=== PATIENT | female | born 1970 | race Asian ===

== ENCOUNTER 2016-12-17 21:34 | Inpatient (IN) | payer OTHER ==
--- NOTE | ~2016-12-17 | CT57 ---
[facility] RADIOLOGY TEXT RESULTS PATIENT: FRACISCO PATTEN [facility] [id number] : [birth year] UNIT #: [id number] AGE: [address]: Lloyd Bhardwaj MD SEX: F ORDER DR: [id number] [facility] [address] [facility]. [place], [place] [address] [id number] I MR#: [id number] Acc #: [id number] NAME: FRACISCO PATTEN : 1970 SEX: F STUDY DATE/TIME: 12/18/2016 8:25 UNIT: CED ROOM: [id number] STUDY DESCRIPTION: CT Chest Wo Cont Attending Physician: Lloyd Bhardwaj M.D. Ordering Physician: Gianna Jaimes M.D. Primary Care Physician: Mohinder Guerrero M.D. MEDICAL IMAGING REPORT This report is preliminary unless electronic signature is present EXAM CT chest without contrast. HISTORY Shortness of air, cough x1 month, history of asthma. COMPARISON Chest CT, 11/15/2016. TECHNIQUE This CT exam was performed with one or more of the following radiation dose reduction techniques: automatic exposure control, adjustment of mA and/or kV according to patient size, and iterative reconstruction. FINDINGS Axial images performed through the chest without contrast. Multiplanar reconstructed images reviewed at a workstation. Examination demonstrates extensive ground-glass opacities and diffuse airspace disease upper mid and lower lung zones. A dense consolidation noted in the right middle lobe. Differential would include infectious process as well as diffuse pulmonary edema. There is a moderate-sized right pleural effusion, which layers to a depth of at least 3 cm. This has been noted on prior studies. There is a trace left pleural effusion. Stable cardiomegaly with a small pericardial effusion. Continued mediastinal and hilar lymphadenopathy. Polycystic changes noted within the kidneys and liver consistent with autosomal dominant polycystic disease. Osseous structures, extrathoracic soft tissues are unremarkable. IMPRESSION 1. Diffuse airspace disease throughout both lungs with area of dense consolidation, right middle lobe. Differential would include infectious etiologies as well as pulmonary edema or, less likely, pulmonary hemorrhage. Correlate with clinical presentation. STS. [facility] A Service of [facility] RADIOLOGY TEXT RESULTS PATIENT: FRACISCO PATTEN LOCATION: [place] [address] : [birth year] UNIT #: [id number] AGE: [address]: Lloyd Bhardwaj MD SEX: F ORDER DR: 2. Continued jpbhl-xy-vqtafxnh right pleural effusion with trace left pleural effusion. 3. Stable mediastinal lymphadenopathy. 4. Polycystic kidney and liver disease. Dictated by... Silke Cano M.D. THIS IS AN ELECTRONICALLY VERIFIED REPORT Silke Cano M.D. at 12/18/2016 3:04 PM YEN/suze TD: 12/18/2016 14:05 JOB #: [id number] MEDICAL IMAGING REPORT COPY
--- NOTE | ~2016-12-17 | OR ---
Unit #: [id number] #: [id number] Patient: FRACISCO PATTEN [id number] [address] [place], [place] [address] [id number] I MR#: [id number] NAME: FRACISCO PATTEN ROOM: 305 Date of Procedure: 12/22/2016 Admission Date: 12/17/2016 Surgeon: Mahad Sam M.D. : 1970 Attending Physician: Lloyd Bhardwaj M.D. Primary Care Physician: Mohinder Guerrero M.D. OPERATIVE REPORT PRIMARY CARE PHYSICIAN Mohinder Guerrero M.D. PREOPERATIVE DIAGNOSES Nausea. The patient has end-stage renal disease, on hemodialysis. PROCEDURES PERFORMED Upper gastrointestinal endoscopy. POSTOPERATIVE DIAGNOSIS Completely normal examination up to upper third part of duodenum. RECOMMENDATIONS The patient's nausea related to underlying renal disease and no specific intervention is indicated except for continuation of hemodialysis and symptomatic treatment with Reglan and/or Zofran. SEDATION USED MAC. DESCRIPTION OF PROCEDURE Following detailed explanation of the potential risks and complications of an upper endoscopy namely perforation, bleeding, and complications related to sedation, the patient was brought to GI lab and laid in left lateral decubitus position. Lubricated tip of the Olympus video upper endoscope was passed through the bite block into the proximal esophagus under direct vision. The entire esophageal mucosa was examined and appeared normal. Z-line was nicely demarcated, there being no esophagitis or hiatus hernia. The scope was then advanced into the gastric cavity and the latter was insufflated. Mucosa of the fundus, body, and antrum examined and appeared unremarkable. Pylorus was intubated with visualization of the normal duodenal bulb and second and third part of the duodenum. Upon withdrawal and retroflexion, incisura, cardia, and greater curve examined and no additional findings noted. The scope was withdrawn in the distal esophagus. The entire esophageal mucosa was examined all the way up to pharynx. No additional findings noted. The patient tolerated the procedure without any postprocedure complications. Dictated by... Mahad Sam M.D. Unit #: [id number] #: [id number] Patient: FRACISCO PATTEN AK/asiya TD: 12/23/2016 21:23 JOB #: [id number] OPERATIVE REPORT X Mahad Sam MD PROCEDURE OPERATIVE NOTE
--- NOTE | ~2016-12-17 | OR ---
Unit #: [id number] #: [id number] Patient: FRACISCO PATTEN [id number] [address] [place], [place] [address] [id number] I MR#: [id number] NAME: FRACISCO PATTEN ROOM: [facility] Date of Procedure: 12/20/2016 Admission Date: 12/17/2016 Surgeon: Maite Montemayor M.D. : 1970 Attending Physician: Lloyd Bhardwaj M.D. Primary Care Physician: Mohinder Guerrero M.D. OPERATIVE REPORT GRAIN UNLOADER None. PREPROCEDURE DIAGNOSIS Functioning right arm fistula for dialysis no longer requiring tunneled dialysis catheter. POSTOPERATIVE DIAGNOSIS Functioning right arm fistula for dialysis no longer requiring tunneled dialysis catheter. PROCEDURE PERFORMED Removal of right internal jugular vein tunneled dialysis catheter. ANESTHESIA None. COMPLICATIONS None. SPECIMEN None. INDICATIONS FOR PROCEDURE The patient is a Irish woman with a functioning right arm basilic fistula for dialysis. She no longer requires her tunneled dialysis catheter. She was recommended removal of the catheter in through the full time staff interpreter phone. We obtained consent. She was told of the planned procedure including the risks and benefits, and wished to proceed. DESCRIPTION OF PROCEDURE The patient was in her hospital room and had her right chest wall. Neck and catheter were prepped and draped in normal standard manner. The retaining stitches on the catheter were cut and the stitches were removed. The catheter was put on gentle traction and the subcutaneous cuff was easily manipulable. The catheter was then able to be slowly removed and the cuff was freed. The catheter was then fully removed and discarded. Direct pressure was held on the base of the right neck as well as chest wall for 5 minutes. No further bleeding was then noted and dressing were then applied, and the procedure was terminated. The patient tolerated the procedure well and was kept in her hospital room in stable condition. All needle, sponge, and instrument counts were correct at the end of the case. Unit #: [id number] #: [id number] Patient: FRACISCO PATTEN Dictated by... Kiley Andrews/asiya TD: 01/20/2017 02:08 JOB #: [id number] OPERATIVE REPORT Page 1 of 1 X Maite Montemayor MD PROCEDURE OPERATIVE NOTE
--- NOTE | ~2016-12-17 | CO ---
Unit #: [id number] #: [id number] Patient: FRACISCO PATTEN [id number] [address] [place], [place] [address] [id number] Erma MR#: [id number] NAME: FRACISCO PATTEN ROOM: 305 Age: 46 Sex: F Admission Date: 12/17/2016 : 1970 Attending Physician: Lloyd Bhardwaj M.D. Primary Care Physician: Mohinder Guerrero M.D. CONSULTATION REPORT REASON FOR CONSULTATION Cough, shortness of breath and hemoptysis. HISTORY OF PRESENT ILLNESS This 46-year-old female was recently seen by me a few months ago with complaint of hemoptysis. I am seeing her today. She has been complaining of mild cough and some blood-tinged sputum for the last 2-3 days. Symptoms have been getting worse. Bronchoscopy was done, which was negative. She denies any other complaints. REVIEW OF SYSTEMS Positive pallor. No edema. No cyanosis. No jaundice. PAST MEDICAL HISTORY 1. Endstage renal disease. 2. Polycystic kidney. 3. Hypertension. 4. Chronic anemia. 5. Abdominal pain. 6. Asthma. 7. Hyperparathyroidism. 8. Hemoptysis. 9. Thyroid goiter. 10. Thoracic aortic dilatation. SURGICAL HISTORY 1. . 2. Dialysis. 3. Catheter placement. 4. AV fistula. 5. Status post bronchoscopy. SOCIAL HISTORY Lives with family. No alcohol or drug abuse. FAMILY HISTORY Positive for diabetes. ALLERGIES No known drug allergies. MEDICATIONS As per DEC. Have been reviewed. Unit #: [id number] #: [id number] Patient: FRACISCO PATTEN PHYSICAL EXAMINATION VITAL SIGNS: Temperature 98, pulse 70, respirations 12, blood pressure 130/70. NEUROLOGIC: Awake, alert and oriented. No neuro deficits. HEENT: PERRLA. EOMI. NECK: Supple. No JVD. CHEST: Bilateral air entry. Bilateral mild rhonchi. GI: Nontender. Soft. Bowel sounds are positive. EXTREMITIES: No edema. DIAGNOSTIC STUDIES IMAGING: Reviewed. Chest x-ray - Bilateral pulmonary edema. LABS: Reviewed. ASSESSMENT 1. Acute bronchitis. 2. Fluid overload. 3. Doubt pneumonia. Currently on IV antibiotics. 4. Endstage renal disease. 5. Likely sinusitis. 6. Obstructive sleep apnea. PLAN Will order CT of sinuses and continue current antibiotic. Oxygen, bronchodilator. Sputum for culture and sensitivity. Will continue to monitor the patient. She needs evaluation for sleep apnea as an outpatient. Will order procalcitonin level, as well. Dictated by... Kiley Valdez TD: 12/20/2016 08:20 JOB #: [id number] CONSULTATION REPORT X Gracie Araujo MD X CONSULTATION REPORT
--- NOTE | ~2016-12-17 | DS ---
Unit #: [id number] #: [id number] Patient: FRACISCO PATTEN [id number] [address] [place], [place] [address] [id number] I MR#: [id number] NAME: FRACISCO PATTEN ROOM: 305 Age: 46 Sex: F Admission Date: 12/17/2016 : 1970 Discharge Date: 12/22/2016 Attending Physician: Lloyd Bhardwaj M.D. Primary Care Physician: Mohinder Guerrero M.D. DISCHARGE SUMMARY DISCHARGE DIAGNOSES 1. End stage renal disease on dialysis. 2. Hemoptysis, likely due to pneumonia. Patient will have esophagogastroduodenoscopy for further assessment by Dr. Sam today. 3. Healthcare-acquired pneumonia; treating for presumed gram-negative rods with Levaquin until 12/28/2016. Blood culture: No growth. Sputum culture: Normal respiratory heavenly. 4. Essential hypertension. Blood pressure is stable today. 5. Anemia, likely to chronic disease. Esophagogastroduodenoscopy today to further assess any source of bleeding. 6. Polycystic kidney disease. 7. History of asthma, no acute exacerbation. 8. History of secondary hyperparathyroidism. 9. Goiter thyroid with small nodules. 10. Ascending thoracic aortic dilation; measures 4.8 cm[address] CON[address] 1. Dr. Araujo and Dr. Hanna with pulmonary. 2. Dr. Sam with gastroenterology. PROCEDURES Patient will have an EGD by Dr. Sam today, 12/22/2016. Please follow up with Dr. Sam's full dictated summary for findings. DIAGNOSTIC STUDIES IMAGING: Consists of chest x-ray, 12/17/2016. Impression: Increased ctzy-xx-slvxpujs patchy infiltrate or atelectasis in the right lower lung and along the inferior left hilum as compared to 11/15/2016. Stable cardiac enlargement. CT chest without contrast. Impression: 1. With diffuse airspace disease throughout both lungs with area of dense consolidation, right middle lobe. Differential would include infectious etiology such as pulmonary edema or, less likely, pulmonary hemorrhage. Correlate with clinical presentation. 2. Continued yomdv-ha-rsejvtej right pleural effusion with trace left pleural effusion. 3. Stable mediastinal lymphadenopathy. 4. Polycystic kidney and liver disease. CT sinuses without contrast. Impression is bilateral maxillary sinus mucous retention cysts and minimal left posterior ethmoid sinus mucosal disease. No evidence of acute sinusitis. Unit #: [id number] #: [id number] Patient: FRACISCO PATTEN Chest x-ray on 12/20/2016. Impression: Improving bilateral parenchymal changes likely improving edema and/or pneumonia. There is no definite left pleural effusion. There is minimal blunting of the right costophrenic sulcus suggesting a small residual right effusion. Overall, the findings are improved. LABORATORY: On the day of discharge, patient's labs include BMP with glucose 99, BUN 20, creatinine 5.3, sodium 36, potassium 4.1, chloride 94, CO2 30, calcium 9, phosphorus is 3, and magnesium is 2.1. CBC with WBC of 9.7, RBC 4.17, hemoglobin 10.5, hematocrit 33.7, MCV 80.7, MCH 25.1, MCHC 31.1, RDW 18.8, platelets 224, and MPV 7.7. HOSPITAL COURSE Patient is a pleasant, 46-year-old female with past medical history of end stage kidney disease on hemodialysis secondary to polycystic kidney disease as well as liver disease, essential hypertension, chronic abdominal pain, asthma, hyperparathyroidism, and chronic anemia who presents to the emergency department due to persistent cough, shortness of breath, and hemoptysis. Patient was admitted from November 15 through the for shortness of breath and hemoptysis. Hemoptysis had resolved. She had bronchoscopy, which was negative by Dr. Araujo. She also had a thyroid goiter with small nodules and she was seen by tanning wheel operator at that time. Patient was discharged home. She had dialysis the day prior to admission. The day of admission, she said that she had been coughing about a month. Patient had denied chest pain, nausea, vomiting, or any other complaints. Patient with hemoptysis. Patient's hemoglobin was stable during this hospitalization. She was admitted with a hemoglobin of 10.6 and discharged at 10.5. Hematocrit: Admitted was 33.3 and discharged at 33.7. Patient was treated for pneumonia with triple IV antibiotics with vancomycin, Zosyn, and Levaquin. On the , x-ray comparison showed that there is improvement; although her procalcitonin was still elevated at 1.53. Therefore, it was felt that patient should continue with the Levaquin until 12/28/2016 per pulmonary recommendations. Patient will have an upper EGD by Dr. Sam to assess for her hemoptysis. The patient tells me the hemoptysis is resolved at this time. She has no other complaints. She will be discharged home in stable condition. DISCHARGE INSTRUCTIONS 1. Follow up with the primary care physician within 1-2 weeks for repeat chest x-ray. 2. She is to follow up with Dr. Sam as necessary. 3. Continue with dialysis per Dr. Myers and Dr. Hanna recommendations. 4. Discharge diet: Includes renal diet with heart healthy recommendations. 5. Activity: Resume activities as prior to hospitalization with ambulating every day as tolerated. DISCHARGE CONDITION Stable. DISCHARGE MEDICATIONS Discharge medications include: 1. Ventolin 2 puffs inhaled every 6 hours as needed for shortness of breath and/or wheezing. 2. Sodium bicarb 650 mg orally 3 times daily. 3. Tylenol 325 mg orally every 6 hours as needed for mild pain. 4. Coreg 6.25 mg orally twice daily, which is a new prescription for her. 5. Norvasc 10 mg orally daily. Unit #: [id number] #: [id number] Patient: FRACISCO PATTEN 6. Lasix 20 mg orally daily. 7. Catapres 0.2 mg orally twice daily. 8. Hydralazine 50 mg orally 3 times daily. 9. Cozaar 100 mg orally daily. 10. Reglan 5 mg orally 4 times daily. 11. Renvela 800 mg orally 3 times daily with meals. 12. Protonix 40 mg orally daily. 13. Tizanidine 4 mg orally at bedtime. 14. Levaquin 250 mg orally daily until 12/28. This dictation took greater than 40 minutes and included patient education via phone interpretation as well as to coordinate care. Dictated by... Sandor Joel PA-C for Kiley Cassidy/suze TD: 12/23/2016 05:30 JOB #: [id number] DISCHARGE SUMMARY X X DISCHARGE SUMMARY
--- NOTE | ~2016-12-17 | EKG ---
PATIENT: FRACISCO PATTEN UNIT #: [id number] Ventricular Rate: 99 BPM Atrial Rate: 99 BPM P-R Interval: 172 ms QRS Duration: 80 ms Q-T Interval: 376 ms QTC Calculation(Bezet): 482 ms P [place]: 14 degrees Calculated R [place]: 44 degrees Calculated T [place]: 37 degrees Diagnosis Line: Normal sinus rhythm Diagnosis Line: Prolonged QT Diagnosis Line: Abnormal ECG Diagnosis Line: When compared with ECG of 15-NOV-2016 15:40, Diagnosis Line: No significant change was found Diagnosis Line: Confirmed by YUKI WILEY MD ([id number]) on 12/19/2016 Diagnosis Line: 2:52:12 PM INTERPRETING MD: INEZ NAARYANAN
--- NOTE | ~2016-12-17 | DS ---
Unit #: [id number] #: [id number] Patient: FRACISCO PATTEN [id number] [address] [address] [id number] I MR#: [id number] NAME: FRACISCO PATTEN ROOM: 305 Age: Sex: F Admission Date: 12/17/2016 : 1970 Discharge Date: 12/22/2016 Attending Physician: Lloyd Bhardwaj M.D. Primary Care Physician: Mohinder Guerrero M.D. DISCHARGE SUMMARY ADDENDUM After seen by Dr. Hanna with nephrology, patient's home management of hydralazine was increased to 100 mg orally 3 times daily. Dictated by... Sandor Joel PA-C for Kiley Cassidy/suze TD: 12/23/2016 07:10 JOB #: [id number] DISCHARGE SUMMARY X X DISCHARGE SUMMARY
--- NOTE | ~2016-12-17 | CR63 ---
[facility] A Service of [facility] RADIOLOGY TEXT RESULTS PATIENT: FRACISCO PATTEN LOCATION: [facility] 305-01 : [birth year] UNIT #: [id number] AGE: [address]: Lloyd Bhardwaj MD SEX: F ORDER DR: [id number] [facility] [address] [facility]. [place], [place] [address] [id number] I MR#: [id number] Acc #: [id number] NAME: FRACISCO PATTEN : 1970 SEX: F STUDY DATE/TIME: 12/20/2016 11:04 UNIT: A U ROOM: [facility] STUDY DESCRIPTION: CR Chest 2 View Attending Physician: Lloyd Bhardwaj M.D. Ordering Physician: Gracie Araujo M.D. Primary Care Physician: Mohinder Guerrero M.D. MEDICAL IMAGING REPORT This report is preliminary unless electronic signature is present EXAM Chest, 2 views, 12/20/2016, 1104 hours. CLINICAL HISTORY 46-year-old with shortness of air, cough, pneumonia for 1 month. History of hypertension and asthma. COMPARISON CT chest 12/18/2016 and portable chest film 12/17/2016. FINDINGS Upright PA and lateral views of the chest demonstrates stable right central venous catheter with inferior tip in the SVC above the right atrium. Stable heart size and tortuous aorta. There is pulmonary venous distension with improving bilateral parenchymal changes suggesting improving pneumonia or edema. No effusion seen on the left. Question very small residual right effusion. IMPRESSION Improving bilateral parenchymal changes, likely improving edema and/or pneumonia. There is no definite left effusion. There is minimal blunting of the right costophrenic sulcus suggesting a small residual right effusion. Overall, the findings are improved. Dictated by... Genevieve Yepez M.D. THIS IS AN ELECTRONICALLY VERIFIED REPORT Genevieve Yepez M.D. at 12/20/2016 2:31 PM BREAM/ahsan [facility] A Service of [facility] RADIOLOGY TEXT RESULTS PATIENT: FRACISCO PATTEN LOCATION: [facility] 305-01 : [birth year] UNIT #: [id number] AGE: [address]: Lloyd Bhardwaj MD SEX: F ORDER DR: TD: 12/20/2016 12:08 JOB #: [id number] MEDICAL IMAGING REPORT COPY
--- NOTE | ~2016-12-17 | HP ---
Unit #: [id number] #: [id number] Patient: FRACISCO PATTEN [id number] [address] [place], [place] [address] [id number] MR#: [id number] NAME: FRACISCO PATTEN ROOM: 81854 Age: 46 Sex: F Admission Date: 12/17/2016 : 1970 Attending Physician: Lloyd Bhardwaj M.D. Primary Care Physician: Mohinder Guerrero M.D. HISTORY AND PHYSICAL CHIEF COMPLAINT Persistent cough, shortness of breath, hemoptysis. DISCUSSION This is a 46-year-old female who does not speak Armenian, with end stage renal disease on hemodialysis, hypertension, polycystic kidney disease, chronic abdominal pain, asthma, hyperparathyroidism, history of anemia. She has an admission here from November 15 through November 18. At that time, she was admitted for shortness of breath and hemoptysis. Her hemoptysis was resolved. She had a bronchoscopy which was negative by Dr. Araujo. Also at that time, she had a thyroid goiter with small nodule. She was seen by endocrine. Also, she has an ascending thoracic aneurysm on CT scan, 4.8 cm. Eventually, she was discharged home. She had hemodialysis yesterday. Today, she is coming here with a chief complaint of her saying that she has been having coughing for one month time. History obtained through the cargo vessel stewardess and also son who is 14 years old who speaks Armenian and from looking at old chart. She had been having some cough for one month which cough is persistent, dry cough. Yesterday, she seen some blood in the sputum and she came to the ER. While in the hospital, she has been persistently coughing but she denied chest pain, nausea, vomiting, other complaint. PAST MEDICAL HISTORY 1. History of admission in July 2016 for catheter-related blood stream infection/sepsis with MRSA. 2. End stage renal disease, on hemodialysis, followed by Dr. Myers. 3. Polycystic kidney disease. 4. Hypertension. 5. Chronic anemia. 6. Chronic abdominal pain. 7. Asthma. 8. History of secondary hyperparathyroidism. 9. History of hemoptysis, status post bronchoscopy October 2016 which was negative. 10. History of thyroid goiter with small nodules. 11. History of ascending thoracic aortic dilatation, 4.8 cm. PAST SURGICAL HISTORY 1. History of . 2. Dialysis catheter placement. 3. AV fistula. 4. Status post bronchoscopy. SOCIAL HISTORY Unit #: [id number] #: [id number] Patient: FRACISCO PATTEN She lives with the family. No tobacco, no alcohol abuse. FAMILY HISTORY Notable for dad has diabetes. ALLERGIES No known drug allergies. MEDICATIONS Medications from home as followin. Cozaar 100 mg daily. 2. Lasix 20 mg daily. 3. Reglan 5 mg four times daily. 4. Acetaminophen 325 q.6 hours. 5. Ventolin two puffs q.6 hours p.r.n. 6. Renvela 800 mg p.o. daily. 7. Protonix 40 mg daily. 8. Catapres 0.2 mg twice a day. 9. Hydralazine 50 mg three times a day. 10. Tizanidine 4 mg at bedtime. 11. Norvasc 10 mg daily. 12. Sodium bicarbonate 650 three times daily. REVIEW OF SYSTEMS CONSTITUTIONAL: No fever, no chills. CARDIOVASCULAR: No chest pain, no diaphoresis, no palpitations. PULMONARY: Persistent dry cough with blood in the sputum. Cough has been going on for one month. Blood in sputum for a few days. GI: No nausea, no vomiting. ENDOCRINE: No polyuria, no polydipsia. NEURO: No headache, no dizziness. PHYSICAL EXAMINATION GENERAL: Middle aged female lying in the bed comfortably, currently not in any distress. She is alert, awake, oriented x3. Persistently coughing while interviewed. CURRENT VITAL SIGNS: Temperature 98, heart rate 100, respiratory rate 2015, blood pressure 178/92. HEENT: Head is atraumatic. Mucous membranes moist. NECK: Supple. No JVD. Trachea midline. HEART: S1, S2. Regular rate and rhythm. LUNGS: Clear to auscultation. No rhonchi, no wheezing. ABDOMEN: Soft, nontender, nondistended. Bowel sounds positive. EXTREMITIES: Inspection normal. No cyanosis, no clubbing, no edema. NEURO: No focal neurologic deficit. DIAGNOSTIC STUDIES LABORATORY: BNP is 1326. Chemistry - sodium 135, potassium 3.4, chloride 93, glucose 125, BUN 14, creatinine 5.3. LFTs within normal limits. White count 8.3, hemoglobin 10, hematocrit 33, platelets 322. Troponin 0.05. Unit #: [id number] #: [id number] Patient: FRACISCO PATTEN IMAGING: Chest x-ray - official report is pending. Shows increased pulmonary congestion. ASSESSMENT AND PLAN 1. Shortness of breath, most likely secondary to volume fluid overload. 2. Persistent cough with questionable hemoptysis though she had a bronchoscopy in October 2016 which was negative: Will ask Dr. Araujo to re-evaluate and get a CT chest without contrast. Start vancomycin and Levaquin while in the hospital. Try to get a sputum culture if possible. 3. End stage renal disease, on hemodialysis. 4. History of thyroid goiter with small nodules. 5. Ascending thoracic aortic dilatation 4.8 cm. 6. Polycystic kidney disease. 7. Anemia of chronic disease. 8. Hypertension. 9. History of chronic abdominal pain. 10. History of asthma. 11. Secondary hyperparathyroidism. Dictated by Kiley Jolley TD: 12/18/2016 10:03 JOB #: [id number] HISTORY AND PHYSICAL X X HISTORY AND PHYSICAL
--- NOTE | ~2016-12-17 | CT113 ---
[facility] A Service of [facility] RADIOLOGY TEXT RESULTS PATIENT: FRACISCO PATTEN LOCATION: [facility] : [birth year] UNIT #: [id number] AGE: [address]: Lloyd Bhardwaj MD SEX: F ORDER DR: [id number] [place] [id number] [facility]. [place], [place] [address] [id number] I MR#: [id number] Acc #: [id number] NAME: FRACISCO PATTEN : 1970 SEX: F STUDY DATE/TIME: 12/18/2016 10:53 UNIT: C3A PCU ROOM: [facility] STUDY DESCRIPTION: CT Sinuses Wo Contrast Attending Physician: Lloyd Bhardwaj M.D. Ordering Physician: Gracie Araujo M.D. Primary Care Physician: Mohinder Guerrero M.D. MEDICAL IMAGING REPORT This report is preliminary unless electronic signature is present EXAM CT sinuses without contrast. DATE OF EXAM 12/18/2016 HISTORY Shortness of air, hemoptysis, respiratory difficulty, cough x1 month. TECHNIQUE NOTE: This CT exam was performed with one or more of the following radiation dose reduction techniques: automatic exposure control, adjustment of mA and/or Kinevac according to patient size, and iterative reconstruction. FINDINGS Thin section axial images performed through the paranasal sinuses without contrast. Polypoid lesions noted within both maxillary sinuses compatible with mucous retention cysts, polyps or mucosal thickening. No acute air-fluid level identified. Minimal left posterior ethmoid sinus disease. Frontal and sphenoid sinuses unremarkable. Maxillary sinus ostia appear normal. The nasal turbinates appear normal. No significant anatomic variance identified. Visualized skull base unremarkable. IMPRESSION Bilateral maxillary sinus mucous retention cysts and minimal left posterior ethmoid sinus mucosal disease. No evidence of acute sinusitis. Dictated by.Kenny. Silke Cano M.D. THIS IS AN ELECTRONICALLY VERIFIED REPORT [facility] A Service [facility] RADIOLOGY TEXT RESULTS PATIENT: FRACISCO PATTEN LOCATION: [facility] : [birth year] UNIT #: [id number] AGE: [address]: Lloyd Bhardwaj MD SEX: F ORDER DR: Silke Cano M.D. at 12/20/2016 7:39 AM YEN/terrance TD: 12/18/2016 17:51 JOB #: [id number] MEDICAL IMAGING REPORT COPY
--- NOTE | ~2016-12-17 | CR72 ---
[facility] A Service of [facility] RADIOLOGY TEXT RESULTS PATIENT: FRACISCO PATTEN LOCATION: [facility] [address] : [birth year] UNIT #: [id number] AGE: [address]: Lloyd Bhardwaj MD SEX: F ORDER DR: [id number] [facility] [address] [facility]. [place], [place] [address] [id number] I MR#: [id number] Acc #: [id number] NAME: FRACISCO PATTEN : 1970 SEX: F STUDY DATE/TIME: 12/17/2016 21:09 UNIT: [facility] ROOM: 60124 STUDY DESCRIPTION: CR Chest Single View Portable Attending Physician: Lloyd Bhardwaj M.D. Ordering Physician: Gianna Jaimes M.D. Primary Care Physician: Mohinder Guerrero M.D. MEDICAL IMAGING REPORT This report is preliminary unless electronic signature is present EXAM Portable chest HISTORY Cough, chest pain and hemoptysis for 4 days. FINDINGS Moderate cardiac enlargement and mild vascular congestion, similar to 11/15/2016. Mild patchy infiltrate or atelectasis in the right lower lung and along the inferior left hilum has increased bilaterally. Right IJ dual-lumen catheter tip is at the junction of the SVC and right atrium. IMPRESSION 1. Increased enbn-tf-bynnrzft patchy infiltrate or atelectasis in the right lower lung and along the inferior left hilum as compared to 11/15/2016. 2. Stable cardiac enlargement. Dictated by... Colton De Jesus M.D. THIS IS AN ELECTRONICALLY VERIFIED REPORT Colton De Jesus M.D. at 12/18/2016 3:39 PM MICHAEL/damari TD: 12/18/2016 09:43 JOB #: [id number] MEDICAL IMAGING REPORT COPY
--- NOTE | ~2016-12-17 | CO ---
Unit #: [id number] #: [id number] Patient: FRACISCO PATTEN [id number] [address] [place], [place] [address] [id number] MR#: [id number] NAME: FRACISCO PATTEN ROOM: 305 Age: 46 Sex: F Admission Date: 12/17/2016 : 1970 Attending Physician: Lloyd Bhardwaj M.D. Primary Care Physician: Mohinder Guerrero M.D. Consultation Date: 12/20/2016 CONSULTATION REPORT DATE OF EXAMINATION 12/20/2016 REASON FOR CONSULTATION Nausea. HISTORY OF PRESENT ILLNESS Ms. Patten is a 46-year-old female who is originally from [facility]. She has end-stage renal disease on hemodialysis along with hypertension, polycystic renal disease. The patient presents with diffuse abdominal pain, nausea, anorexia and dyspepsia along with a history of anemia most likely from renal disease. Currently, she mentions shortness of breath and cough along with hemoptysis. It is noteworthy the patient has had workup in the past including bronchoscopy. PAST MEDICAL HISTORY End-stage renal disease on hemodialysis, polycystic renal disease, hypertension, anemia of renal disease, chronic abdominal pain, bronchial asthma, history of hyperparathyroidism, history of catheter-related MRSA sepsis in the past. PAST SURGICAL HISTORY Dialysis catheter placement, section, AV fistula. SOCIAL HISTORY The patient does not smoke, drink alcohol. The patient lives at home with her family. FAMILY HISTORY Significant for father having had diabetes. ALLERGIES She has no known drug allergies. MEDICATIONS PRIOR TO ADMISSION 1. Protonix 40 mg p.o. daily. 2. Cozaar. 3. Lasix. 4. Reglan. 5. Acetaminophen. 6. Ventolin. 7. Renvela. 8. Catapres. 9. Hydralazine. Unit #: [id number] #: [id number] Patient: FRACISCO PATTEN 10. Tizanidine. 11. Norvasc. 12. Sodium bicarb. REVIEW OF SYSTEMS A detailed review of organ systems does not reveal any recent weight loss. No history of any fever, chills, rigors. No history of headache, seizures, chest pain. There is history of cough along with shortness of breath and sputum production. Recently, she has also had some hemoptysis. History of nausea but no vomiting. History of upper abdominal pain. No history of dysuria, hematuria or pyuria. No history of focal seizures or extremity weakness. No history of skin rash, aphthous ulcer in mouth or active arthritis. The rest of the review of organ system is unremarkable. PHYSICAL EXAMINATION GENERAL APPEARANCE: She is alert, oriented, appears comfortable. VITAL SIGNS: Stable with a temperature of 98.1. Pulse is 82 per minute, regular. Respiratory rate 16. Blood pressure 152/75. HEENT: She has mild pallor with there being no icterus, lymphadenopathy and grade 1 pitting peripheral edema. CARDIOVASCULAR: Normal heart sounds. No murmurs on auscultation. LUNGS: Normal breath sounds with good air entry. ABDOMEN: Soft, minimally obese. There is no area of localized issue, rebound, guarding or tenderness. Liver and spleen are not palpable. Bowel sounds normal. DIAGNOSTIC STUDIES LABORATORY: White count 6.0, hemoglobin 10.3 with normochromic normocytic red cell indices and platelet count 251. INR 1.0. Serum chemistry shows a BUN and creatinine of 15 and 4.5, albumin 3.3. LFTs are normal. BNP 1,326. Iron studies indicate low TIBC suggesting anemia of chronic disease. B12 and Ferritin are high. CLINICAL IMPRESSION Patient with end-stage renal disease on hemodialysis, underlying congestive heart failure, underlying multiple medical problems as mentioned above, presenting with hemoptysis. She also mentions nausea and upper abdominal pain. Although these symptoms are most likely related to underlying renal disease, an extrinsic disease to gastrointestinal tract such as ulcer disease or gastroesophageal reflux disease also needs to be excluded. A diagnostic endoscopy is warranted and will be scheduled later today. The pros and cons of the procedure and potential risks and complications were discussed with the patient through a [facility] translator interpreter and the patient was reassured. Thank you for asking me to see this pleasant patient. I appreciate the consult. ADDENDUM It seems that the patient refused endoscopy after a few hours and subsequently ate some rice and then said she wished to undergo endoscopy. Therefore, the procedure is being postponed to another day. Dictated byBinta Sam M.D. Unit #: [id number] #: [id number] Patient: FRACISCO PATTEN BRIE/yandel TD: 12/21/2016 07:29 JOB #: [id number] CONSULTATION REPORT X Mahad Sam MD CONSULTATION REPORT
[2016-12-17 21:21] LABS: BASOPHIL# 0.1 X10e3 (0-0.3); BASOPHIL% 1.4 % (0-2.5); EOSINOPHIL# 0.2 X10e3 (0-0.7); EOSINOPHIL% 1.8 % (0.0-7.0); HEMATOCRIT 33.3 % (35.0-45.0); HEMOGLOBIN 10.6 gm/dL (12.0-16.0); LYMPHOCYTE# 1.3 X10e3 (1.0-3.5); MEAN CELL VOLUME 78.9 FL (83-96); MEAN CORPUSCULAR HEMOGLOBIN 25.1 PG (28-34); MEAN CORPUSCULAR HGB CONC 31.8 g/dL (30-36); MEAN PLATELET VOLUME 7.3 FL (6.5-11.5); MONOCYTE# 0.6 X10e3 (0-1.0); MONOCYTE% 6.7 % (3.0-12.0); NEUTROPHIL# 6.3 X10e3 (1.5-7.1); NEUTROPHIL% 75.1 % (40-75); PLATELET COUNT 322 X10e3 (140-420); RED BLOOD COUNT 4.23 X10e (3.90-5.30); RED CELL DISTRIBUTION WIDTH 17.9 % (11.0-15.5); WHITE BLOOD COUNT 8.3 X10e3 (4.0-10.5)
[2016-12-17 21:23] LABS: POC - CKMB <1.0 ng/mL (0.0-7.9); POC - TROPONIN <0.05 ng/mL (<=0.05)
[2016-12-17 21:24] LABS: DIFF IND NO
[~2016-12-17 21:34] MED LIST: ACETAMINOPHEN325 MG PO; ALBUTEROL17 GM INH; CALCIUM ACETAT667 MG PO; CLONIDINE PO; COZAAR100 MG PO; HYDRALAZINE HCL25 MG PO; HYDRALAZINE HCL50 MG PO; LASIX20 MG PO; LISINOPRIL10 MG PO; MEDI-MECLIZINE25 M1 PO; METOPROLOL TART25 MG PO; MOBIC PO; MOBIC7.5 MG/5 M PO; NORCO1 TAB 10/3 PO; NORVASC10 MG PO; PEPCID AC20 M2 PO; PERCOCET 5/321 UDTAB PO; PHOSLO667 M1 PO; PRINIVIL10 MG PO; PROTONIX PO; REGLAN5 MG PO; RENVELA800 MG PO; SODIUM BICARBO650 MG PO; TIZANIDINE HCL4 M1 PO; VANCOMYCIN HCL1 GM IV; VENTOLIN5 MG/ML INH
[2016-12-17 21:54] LABS: ALBUMIN SERUM 3.3 g/dL (3.5-5.0); BILIRUBIN, DIRECT 0.1 mg/dL (0.0-0.2); BILIRUBIN,TOTAL 1.1 mg/dL (0.2-2.0); BUN/CREATININE RATIO 2.64; CREATININE SERUM 5.3 mg/dL (0.6-1.4); GLOM FILT RATE Estimated 9.3 mL/min (>60); POTASSIUM 3.4 mmol/L (3.5-5.1)
[2016-12-18 00:39] LABS: POC - CKMB <1.0 ng/mL (0.0-7.9); POC - TROPONIN <0.05 ng/mL (<=0.05)
[2016-12-18 23:49] LABS: BUN/CREATININE RATIO 4.22; CALCIUM SERUM 8.6 mg/dL (8.4-10.2); CREATININE SERUM 7.1 mg/dL (0.6-1.4); GLOM FILT RATE Estimated 6.6 mL/min (>60); POTASSIUM 3.8 mmol/L (3.5-5.1)
[2016-12-19 00:32] LABS: BASOPHIL# 0.1 X10e3 (0-0.3); DIFF IND NO; EOSINOPHIL# 0.1 X10e3 (0-0.7); EOSINOPHIL% 1.1 % (0.0-7.0); HEMATOCRIT 30.2 % (35.0-45.0); HEMOGLOBIN 9.8 gm/dL (12.0-16.0); LYMPHOCYTE# 1.8 X10e3 (1.0-3.5); LYMPHOCYTE% 19.1 % (17.0-45.0); MEAN CELL VOLUME 79.2 FL (83-96); MEAN CORPUSCULAR HEMOGLOBIN 25.6 PG (28-34); MEAN CORPUSCULAR HGB CONC 32.4 g/dL (30-36); MEAN PLATELET VOLUME 7.1 FL (6.5-11.5); MONOCYTE# 0.7 X10e3 (0-1.0); MONOCYTE% 6.9 % (3.0-12.0); NEUTROPHIL# 6.8 X10e3 (1.5-7.1); NEUTROPHIL% 71.9 % (40-75); PLATELET COUNT 310 X10e3 (140-420); RED BLOOD COUNT 3.81 X10e (3.90-5.30); WHITE BLOOD COUNT 9.5 X10e3 (4.0-10.5)
[2016-12-20 05:26] LABS: HEMATOCRIT 32.2 % (35.0-45.0); HEMOGLOBIN 10.3 gm/dL (12.0-16.0); MEAN CELL VOLUME 80.6 FL (83-96); MEAN CORPUSCULAR HEMOGLOBIN 25.8 PG (28-34); MEAN PLATELET VOLUME 7.6 FL (6.5-11.5); RED CELL DISTRIBUTION WIDTH 18.2 % (11.0-15.5)
[2016-12-20 06:19] LABS: BUN/CREATININE RATIO 3.33; CALCIUM SERUM 9.1 mg/dL (8.4-10.2); CREATININE SERUM 4.5 mg/dL (0.6-1.4); GLOM FILT RATE Estimated 11.2 mL/min (>60); POTASSIUM 4.6 mmol/L (3.5-5.1)
[2016-12-21 05:21] LABS: HEMATOCRIT 31.6 % (35.0-45.0); HEMOGLOBIN 10.2 gm/dL (12.0-16.0); MEAN CELL VOLUME 79.8 FL (83-96); MEAN CORPUSCULAR HEMOGLOBIN 25.7 PG (28-34); MEAN CORPUSCULAR HGB CONC 32.2 g/dL (30-36); MEAN PLATELET VOLUME 7.2 FL (6.5-11.5); RED BLOOD COUNT 3.96 X10e (3.90-5.30); RED CELL DISTRIBUTION WIDTH 18.8 % (11.0-15.5); WHITE BLOOD COUNT 5.3 X10e3 (4.0-10.5)
[2016-12-21 07:44] LABS: ALBUMIN SERUM 2.9 g/dL (3.5-5.0); BILIRUBIN,TOTAL 1.3 mg/dL (0.2-2.0); BUN/CREATININE RATIO 3.48; CALCIUM SERUM 8.6 mg/dL (8.4-10.2); CREATININE SERUM 6.6 mg/dL (0.6-1.4); GLOM FILT RATE Estimated 7.2 mL/min (>60); MAGNESIUM 2.1 mg/dL (1.6-3.0)
[2016-12-22 06:05] LABS: HEMATOCRIT 33.7 % (35.0-45.0); HEMOGLOBIN 10.5 gm/dL (12.0-16.0); MEAN CELL VOLUME 80.7 FL (83-96); MEAN CORPUSCULAR HEMOGLOBIN 25.1 PG (28-34); MEAN CORPUSCULAR HGB CONC 31.1 g/dL (30-36); MEAN PLATELET VOLUME 7.7 FL (6.5-11.5); RED BLOOD COUNT 4.17 X10e (3.90-5.30); RED CELL DISTRIBUTION WIDTH 18.8 % (11.0-15.5); WHITE BLOOD COUNT 5.7 X10e3 (4.0-10.5)
[2016-12-22 07:13] LABS: BUN/CREATININE RATIO 3.77; CREATININE SERUM 5.3 mg/dL (0.6-1.4); GLOM FILT RATE Estimated 9.3 mL/min (>60); POTASSIUM 4.1 mmol/L (3.5-5.1)
[2016-12-22] MEDS ORDERED: COREG6.25 M1 PO (17:29)
[2016-12-22] MEDS ORDERED: LEVAQUIN250 MG PO (17:31)
== END 2016-12-22 19:28 | disposition home or self-care (01) | DRG 193 ==
LOC: CED 21:34 → CEDOF 23:01 → C3A PCU 12-18 15:49
PROVIDERS: Emergency Medicine; Internal Medicine; Internal Medicine Gastroenterology; Internal Medicine Nephrology; Physician Assistant Medical
PROC: 5A1D60Z (ICD-10-PCS; 2016-12-19)
PROC: 0DJ08ZZ Inspection of Upper Intestinal Tract, Via Natural or Artificial Opening Endoscopic (ICD-10-PCS; principal; 2016-12-22 16:09)
DX: J18.9 Pneumonia, unspecified organism (principal); N18.6 End stage renal disease; Q61.3 Polycystic kidney, unspecified; I12.0 Hypertensive chronic kidney disease with stage 5 chronic kidney disease or end stage renal disease; R04.2 Hemoptysis; D63.1 Anemia in chronic kidney disease; Z99.2 Dependence on renal dialysis; J45.909 Unspecified asthma, uncomplicated; E04.9 Nontoxic goiter, unspecified; Z83.3 Family history of diabetes mellitus; Z86.14 Personal history of Methicillin resistant Staphylococcus aureus infection; E87.5 Hyperkalemia; E87.70 Fluid overload, unspecified
CPT/HCPCS: 36415; 70486; 71010; 71020; 71250; 80048; 80053; 80076; 80202; 82308; 82553; 83735; 83880; 84100; 84484; 85025; 85027; 87040; 87070; 87205; 87340; 93005; 94640; 94760; 96374; 97161; 99285; J0360; J1956; J2930; J3370

== ENCOUNTER → 2017-03-11 | Outpatient (CLI) | payer OTHER ==
[~2017-03-11] MED LIST changes: +COREG6.25 M1 PO; +LEVAQUIN250 MG PO
== END | disposition home or self-care (01) ==
LOC: CECH 13:29
DX: R01.1 Cardiac murmur, unspecified (principal); I36.1 Nonrheumatic tricuspid (valve) insufficiency; I37.1 Nonrheumatic pulmonary valve insufficiency
CPT/HCPCS: 93306

== ENCOUNTER → 2017-05-04 | Outpatient (CLI) | payer OTHER ==
--- NOTE | ~2017-05-04 | US6 ---
[facility] A Service of [facility] RADIOLOGY TEXT RESULTS PATIENT: FRACISCO PATTEN LOCATION: [facility] : 70 UNIT #: [id number] AGE: [address]: Mohinder Guerrero MD SEX: F ORDER DR: [id number] [facility] [address] [place], [place] [address] [id number] O MR#: [id number] Acc #: [id number] NAME: FRACISCO PATTEN : 1970 SEX: F STUDY DATE/TIME: 05/04/2017 9:20 UNIT: [facility] ROOM: STUDY DESCRIPTION: US Abdominal Limited Attending Physician: Mohinder Guerrero M.D. Ordering Physician: Mohinder Guerrero M.D. Primary Care Physician: Mohinder Guerrero M.D. MEDICAL IMAGING REPORT This report is preliminary unless electronic signature is present EXAM Ultrasound abdominal limited. HISTORY Pain. Gallbladder ultrasound pain wqs-um-akrnj months. TECHNIQUE Real-time ultrasonography of the right upper quadrant was performed. Huang-scale, color Doppler, Doppler pulse-wave interrogation utilized. COMPARISON 04/14/2016. FINDINGS Visualized portions of the pancreas are unremarkable. Some portions of head and tail were obscured by bowel gas artifact. There are multiple hepatic cysts. Similar appearance on prior examination. The liver appears normal in overall contour. It measures about 13.7 cm in greatest length. Similar appearance on prior study. Portal vein is patent with normal direction of flow. No suspicious focal hepatic parenchymal abnormality is seen. Gallbladder is low in volume. No gallbladder wall thickening or pericholecystic fluid. Gallstones again seen as on prior study. Gallbladder wall measures 1.7 mm in thickness. The right kidney is enlarged measuring 16 cm in greatest sagittal diameter. There are multiple too numerous to count renal cysts. No evidence of hydronephrosis or nephrolithiasis. No suspicious renal parenchymal abnormality. No intra or extrahepatic biliary ductal dilatation. Common duct measures 3.2 mm in diameter. IMPRESSION 1. Polycystic right kidney as described above. Right kidney is enlarged measuring about 16 cm in maximum length. No hydronephrosis or nephrolithiasis. No suspicious appearing right renal mass lesion. STS. [facility] A Service of [facility] RADIOLOGY TEXT RESULTS PATIENT: FRACISCO PATTEN LOCATION: [facility] : 70 UNIT #: [id number] AGE: [address]: Mohinder Guerrero MD SEX: F ORDER DR: There is no perinephric fluid collection. 2. Multiple hepatic cysts as well. No suspicious focal hepatic parenchymal abnormality. 3. Uncomplicated cholelithiasis. No biliary duct dilatation. 3. The visualized portions of pancreas are unremarkable but some portions are obscured by bowel gas artifact. If further imaging of the pancreas is clinically warranted consider CT. Dictated by... Oscar Degroot M.D. THIS IS AN ELECTRONICALLY VERIFIED REPORT Oscar Degroot M.D. at 05/05/2017 4:47 PM KAYDEN/terrance TD: 05/04/2017 21:44 JOB #: [id number] MEDICAL IMAGING REPORT Page 1 of 1 COPY
== END | disposition home or self-care (01) ==
LOC: CWCC 08:56
DX: R10.9 Unspecified abdominal pain (principal); N28.1 Cyst of kidney, acquired; N28.81 Hypertrophy of kidney; K76.89 Other specified diseases of liver; K80.20 Calculus of gallbladder without cholecystitis without obstruction
CPT/HCPCS: 76705

== ENCOUNTER → 2017-06-17 | Outpatient (CLI) | payer OTHER ==
--- NOTE | ~2017-06-17 | MY29 ---
[facility] A Service of [facility] RADIOLOGY TEXT RESULTS PATIENT: FRACISCO PATTEN LOCATION: [facility] : 70 UNIT #: [id number] AGE: [address]: Fer Hanna MD SEX: F ORDER DR: [id number] [facility] [address] [place], [place] [address] [id number] O MR#: [id number] Acc #: [id number] NAME: FRACISCO PATTEN : 1970 SEX: F STUDY DATE/TIME: 06/17/2017 14:32 UNIT: [facility] ROOM: STUDY DESCRIPTION: MY [facility] SCREENING W/ CAD BILAT Attending Physician: Fer Hanna M.D. Ordering Physician: Fer Hanna M.D. Primary Care Physician: Mohinder Guerrero M.D. MEDICAL IMAGING REPORT This report is preliminary unless electronic signature is present EXAM Digital screening mammogram 06/17/2017 HISTORY 46-year-old woman, no risk elevation. Patient is on dialysis. Annual screening. COMPARISON Mammograms 04/28/2016. FINDINGS Digital imaging of each breast was completed utilizing a two-view examination of each breast in craniocaudal and mediolateral-oblique projections. Review and interpretation of digital mammograms include a second review in conjunction with FDA-approved CAD device. There is a normal parenchymal presentation bilaterally consistent with the patient's age. There are no breast masses imaged and no parenchymal asymmetry is visualized. There are no suspicious microcalcifications and I see no focal architectural disturbance. IMPRESSION Negative screening digital mammogram. One-year followup recommended. Patients over the age of 40 are entered into a reminder system with target due date for the next mammogram. A result letter will also be sent to the patient. BIRADS: 1 Negative Dictated by... Ron Siddiqui M.D. [facility] A Service [facility] RADIOLOGY TEXT RESULTS PATIENT: FRACISCO PATTEN LOCATION: [facility] : 70 UNIT #: [id number] AGE: [address]: Fer Hanna MD SEX: F ORDER DR: THIS IS AN ELECTRONICALLY VERIFIED REPORT Ron Siddiqui M.D. at 06/19/2017 1:44 PM JBB/pcl TD: 06/17/2017 20:27 JOB #: [id number] MEDICAL IMAGING REPORT Page 1 of 1 COPY
== END | disposition home or self-care (01) ==
LOC: CWCC 09:00
DX: Z12.31 Encounter for screening mammogram for malignant neoplasm of breast (principal); Z99.2 Dependence on renal dialysis
CPT/HCPCS: G0202